=== PATIENT | female | born 1990 | race Caucasian/White ===

== ENCOUNTER 2017-03-25 13:02 | Emergency (ER) | payer OTHER ==
[~2017-03-25] VITALS: Ht 152.4 cm; Wt 89.4 kg
[2017-03-25] MEDS ORDERED: ANUS2.5C2 PR (14:37)
[2017-03-25] MEDS ORDERED: STOO100C PO (14:40)
[2017-03-25 14:59] VITALS: BP 136/78
== END 2017-03-25 15:03 | disposition home or self-care (01) ==
LOC: M ED 13:02
DX: K64.8 Other hemorrhoids (principal); K62.5 Hemorrhage of anus and rectum

== ENCOUNTER → 2019-04-30 | Outpatient (REF) | payer OTHER ==
[~2019-04-30] MED LIST: ANUS2.5C2 PR; MM S100C PO
[2019-04-30 13:52] LABS: HEMATOCRIT 37.8 % (36.0-47.0); HEMOGLOBIN 13.6 g/dl (12.0-15.5); MEAN CORPUSCULAR HEMOGLOBIN 35.6 pg (27.0-33.0); PLATELET COUNT, AUTOMATED 258 10^3/uL (150-450); RED BLOOD COUNT 3.82 10^6/uL (4.00-5.40); WHITE BLOOD COUNT 6.8 10^3/uL (4.0-10.0)
[2019-05-01 10:45] LABS: HEPATITIS B SURFACE ANTIGEN NEGATIVE (NEGATIVE); HEPATITIS C VIRUS ABY INDEX 0.1 INDEX (<0.8); HIV 1&2 SCREEN CENTAUR NEGATIVE (NEGATIVE); RUBELLA IgG QUALITATIVE IMMUNE (IMMUNE)
== END ==
LOC: M LAB REF 13:25
PROVIDERS: ATTEND Obstetrics & Gynecology
DX: Z34.81 Encounter for supervision of other normal pregnancy, first trimester (principal)

== ENCOUNTER 2020-02-17 13:38 | Inpatient (IN) | payer OTHER ==
[~2020-02-17] VITALS: Ht 154.9 cm; Wt 68.9 kg
[2020-02-17 14:43] LABS: HEMATOCRIT 38.5 % (36.0-47.0); HEMOGLOBIN 13.6 g/dl (12.0-15.5); MEAN CORPUSCULAR HEMOGLOBIN 34.3 pg (27.0-33.0); MEAN CORPUSCULAR HGB CONC 35.3 g/dl (32.0-36.5); MEAN CORPUSCULAR VOLUME 97.2 fl (80.0-96.0); PLATELET COUNT, AUTOMATED 225 10^3/uL (150-450); RED BLOOD COUNT 3.96 10^6/uL (4.00-5.40); WHITE BLOOD COUNT 8.2 10^3/uL (4.0-10.0)
[2020-02-17 14:48] LABS: HCG, SERUM QUALITATIVE NEGATIVE (NEGATIVE)
[2020-02-17 14:52] LABS: ACETAMINOPHEN LEVEL < 2.0 UG/ML (10.0-30.0); ALBUMIN 4.3 GM/DL (3.2-5.2); ALT/SGPT 35 U/L (12-78); BILIRUBIN,DIRECT 0.2 MG/DL (0.0-0.2); BILIRUBIN,TOTAL 0.7 MG/DL (0.2-1.0); BLOOD UREA NITROGEN 11 MG/DL (7-18); CALCIUM LEVEL 8.9 MG/DL (8.5-10.1); CARBON DIOXIDE LEVEL 23 MEQ/L (21-32); CHLORIDE LEVEL 109 MEQ/L (98-107); CREATININE FOR GFR 0.82 MG/DL (0.55-1.30); ETHYL ALCOHOL (ETHANOL) 0.044 % (0.000-0.010); GLOMERULAR FILTRATION RATE > 60.0 (>60); GLUCOSE, FASTING 74 MG/DL (70-100); POTASSIUM SERUM 3.9 MEQ/L (3.5-5.1); SALICYLATE LEVEL < 1.7 MG/DL (5.0-30.0); SODIUM LEVEL 141 MEQ/L (136-145); THYROID STIMULATING HORMONE 0.681 uIU/ML (0.358-3.740); TOTAL PROTEIN 7.7 GM/DL (6.4-8.2)
[2020-02-17 15:33] LABS: AMPHETAMINES LEVEL URINE NEGATIVE (NEGATIVE); BARBITURATES URINE NEGATIVE (NEGATIVE); BENZODIAZEPINES URINE NEGATIVE (NEGATIVE); CANNABINOIDS URINE NEGATIVE (NEGATIVE); COCAINE METABOLITE URINE POSITIVE (NEGATIVE); METHADONE URINE NEGATIVE (NEGATIVE); OPIATES URINE NEGATIVE (NEGATIVE); PHENCYCLIDINE URINE NEGATIVE (NEGATIVE)
[2020-02-17 16:06] LABS: CPK CREATINE PHOSPHOKINASE 63 U/L (26-192)
[2020-02-17] MEDS ORDERED: TRI-TAB16 PO (16:08)
[2020-02-17] MEDS ORDERED: traZODone 50 MG TAB PO PRN (18:45)
[2020-02-17] MEDS ORDERED: MAALOX 30 ML SUSP *UDC PO PRN (18:45)
[2020-02-17] MEDS ORDERED: MOM 30ML SUSPENSION UDC PO PRN (18:45)
[2020-02-17] MEDS ORDERED: ACETAMINOPHEN TAB 650MG DOSE (2X325MG) PO PRN (18:45)
[2020-02-17 23:34] VITALS: BP 138/98
[2020-02-18 06:39] VITALS: BP 168/92
--- NOTE | 2020-02-18 09:12 | MHHPEPDOC ---
General Date Of Admission: Feb 17, 2020 Legal Status: 9.39 Chief Complaint "I was stressed" History of Present Illness HISTORY OF THE PRESENT ILLNESS: Patient is a 29 -year-old , female, who Presented to [facility] after reportedly becoming increasingly depressed and despondent. The patient reported that she had been using cocaine and drinking alcohol and had expressed some suicidal thoughts for which she was brought in an admitted [facility] caution. The patient was met with she reports she had no suicidal thoughts and was feeling much improved, she reported that her cocaine use and her stress of having to stay at home and deal with many psychosocial stressors was making her feel worse. She reported that she was mental trying medications and was interested in going home tomorrow. She reported that she had no other treatment prior Psychiatric Review of Systems Depression (2 or more weeks): depressed mood, insomnia/hypersomnia Eleni (4 or more days of): denies Psychosis: denies Anxiety: stressor related anxiety Past Psychiatric History Previous Psychiatric Diagnosis: none. Previous Psychiatric Admissions: denies. Suicide Attempts: denies. Psychiatric Follow-up: none. Psychiatric medications: none. Past Medical History Medical Problems n/a Family Medical/Psychiatric HX Addiction: Yes Addiction History alcohol, cocaine Social History Childhood: "fine". Abuse/Trauma:denies. Current Living Situation: lives alone. Education: HS. Employment: currently working. Social Support: few. Legal: none noted. Mental Status Examination General Appearance: well groomed Build: average Demeanor: average Eye Contact: average Activity: average Behavior: cooperative Speech: clear Mood: euthymic Affect: full Thought Process: logical/linear Thought Content (Delusions): none reported, denies SI, HI, AVH Thought Content (Aggressive): none reported Perception (Hallucinations): none reported Perception (Other): none reported Cognition (Impairment of): none reported Cognition(Intelligence Est.): average Oriented: Awake, Alert Insight: fair Judgment: Fair Psychosis: Denies A-FIB/CHADSVASC A-FIB History Current/History of A-Fib/PAF?: No Assessment 29-year-old woman with likely adjustment disorder presents after multiple stressors, as well as alcohol and cocaine use Problem List Problems: (1) Adjustment disorder Status: Acute Response to Treatment: Improving Problem Specific Plan: Monitor Clinically Problem Text: sertraline 25mg daily, discussed risks,benifits and side effects with patient as well as alternatives (2) Cocaine abuse Status: Chronic Response to Treatment: Stable Problem Specific Plan: Monitor Clinically (3) Alcohol abuse Status: Chronic Response to Treatment: Stable Problem Specific Plan: Monitor Clinically Initial Treatment Plan 1. Patient was admitted on a [9.39] status. 2. Complete history was obtained. 3. With patients permission, family will be contacted and database will be expanded. 4. Patients medication regimen will be reviewed and changed accordingly. 5. Patient will be provided with protected environment. 6. Patient will be treated with individual, group, and milieu therapies. 7. Patient will receive supportive psych-education. 8. Discharge planning will commence immediately. 9. Outpatient follow-up treatment will be strongly recommended. 10. The initial treatment plan will focus initially on: * Depression. * Risk for suicide. ESTIMATED LENGTH OF STAY: 2 DAYS. TIME SPENT COUNSELING AND COORDINATING INITIAL CARE: 30 minutes. Vital Signs Vital Signs Date Time Temp Pulse Resp B/P (MAP) Pulse Ox O2 Delivery O2 Flow Rate FiO2 02/18/20 06:39 98.0 67 16 168/92 (117) 97 Room Air Laboratory Data 24H Labs Laboratory Tests 2 02/17/20 14:08: Nucleated Red Blood Cells % (auto) 0.0, Anion Gap 9, Glomerular Filtration Rate > 60.0, Calcium Level 8.9, Total Bilirubin 0.7, Direct Bilirubin 0.2, Aspartate Amino Transf (AST/SGOT) 42H, Alanine Aminotransferase (ALT/SGPT) 35, Alkaline Phosphatase 63, Total Creatine Kinase 63, Total Protein 7.7, Albumin 4.3, Albumin/Globulin Ratio 1.3, Thyroid Stimulating Hormone (TSH) 0.681, Human Chorionic Gonadotropin, Qual NEGATIVE, Salicylates Level < 1.7L, Acetaminophen Level < 2.0L, Ethyl Alcohol Level 0.044H 02/17/20 14:58: Urine Opiates Screen NEGATIVE, Urine Methadone Screen NEGATIVE, Urine Barbiturates Screen NEGATIVE, Urine Phencyclidine Screen NEGATIVE, Urine Amphetamines Screen NEGATIVE, Urine Benzodiazepines Screen NEGATIVE, Urine Cocaine Metabolite Screen POSITIVEH, Urine Cannabinoids Screen NEGATIVE CBC/BMP Laboratory Tests 02/17/20 14:08 Medications Scheduled Norgestimate-Ethinyl Estradiol (Tri-Linyah Tablet) 1 Each Tablet, 1 TAB PO DAILY, (Reported) Allergies Coded Allergies: No Known Allergies (Unverified , 02/17/20) RICH BLACKWOOD DO Feb 18, 2020 09:12
[2020-02-18] MEDS ORDERED: LORazepam 2 MG TAB PO PRN (09:30)
[2020-02-18] MEDS: MULTIVITAMINS/MINERALS THERAP 1 TAB PO SCH (09:38)
[2020-02-18] MEDS: THIAMINE 100 MG TAB PO SCH ×2 (09:38→20:23)
[2020-02-18] MEDS: FOLIC ACID 1 MG TAB PO SCH (09:39)
[2020-02-18] MEDS ORDERED: SERTRALINE HCL 25 MG TABLET PO ONE (11:30)
[2020-02-18 12:55] LABS: FOLATE > 24.0 NG/ML (>5.4); VITAMIN B12 LEVEL 314 PG/ML (247-911)
--- NOTE | 2020-02-18 14:42 | HPEPDOC ---
[facility] Medical History & Physical Date of Admission Feb 18, 2020 Date of Service: Feb 18, 2020 History and Physical CHIEF COMPLAINT: Medical H&P for [facility] HISTORY OF PRESENT ILLNESS: 29 yo female admitted to [facility], seen at bedside, voices no medical complaints. Denies chest pain, shortness of breath, headaches, abdominal pain, N/V/D. PAST MEDICAL HISTORY: Denies ALLERGIES: Please see below. REVIEW OF SYSTEMS: Negative except as per HPI. HOME MEDICATIONS: Please see below. PHYSICAL EXAMINATION: VITAL SIGNS: See below General: NAD, lying comfortably in bed HEENT: NC/AT, EOMI Lungs: CTA B/L Heart: +S1S2, RRR Abd: soft, NT, +BS Ext: no edema LABORATORY DATA: See below. MICROBIOLOGY: Please see below. ASSESSMENT: 29 yo female seen in [facility] for medical consultation. #Psych - as per primary team - psychiatry Vital Signs Vital Signs Date Time Temp Pulse Resp B/P (MAP) Pulse Ox O2 Delivery O2 Flow Rate FiO2 02/18/20 06:39 98.0 67 16 168/92 (117) 97 Room Air Laboratory Data Labs 24H Laboratory Tests 2 02/17/20 14:58: Urine Opiates Screen NEGATIVE, Urine Methadone Screen NEGATIVE, Urine Barbiturates Screen NEGATIVE, Urine Phencyclidine Screen NEGATIVE, Urine Amphetamines Screen NEGATIVE, Urine Benzodiazepines Screen NEGATIVE, Urine Cocaine Metabolite Screen POSITIVEH, Urine Cannabinoids Screen NEGATIVE 02/18/20 11:51: Vitamin B12 Level 314, Folate > 24.0 Home Medications Scheduled Norgestimate-Ethinyl Estradiol (Tri-Linyah Tablet) 1 Each Tablet, 1 TAB PO DAILY Allergies Coded Allergies: No Known Allergies (Unverified , 02/17/20) A-FIB/CHADSVASC A-FIB History Current/History of A-Fib/PAF?: No MIGUEL NICOLE MD Feb 18, 2020 14:42
[2020-02-18 17:08] VITALS: BP 125/79
[2020-02-18 22:07] VITALS: BP 125/79
[2020-02-19 06:00] VITALS: BP 118/82
[2020-02-19 06:34] VITALS: BP 118/82
[2020-02-19] MEDS: FOLIC ACID 1 MG TAB PO SCH (08:25)
[2020-02-19] MEDS: THIAMINE 100 MG TAB PO SCH (08:26)
[2020-02-19] MEDS: MULTIVITAMINS/MINERALS THERAP 1 TAB PO SCH (08:26)
[2020-02-19] MEDS ORDERED: SERTRALINE HCL 25 MG TABLET PO SCH (09:00)
--- NOTE | 2020-02-19 09:15 | MHDSPDOC ---
[facility] Discharge Summary Discharge Summary DATE OF ADMISSION: Feb 17, 2020 at 18:33 DATE OF DISCHARGE: Feb 19, 2020 at 13:15 DISCHARGE DIAGNOSES: 1. Unspecified depressive disorder. 2. poly substance use. REASON FOR ADMISSION: 29-year-old woman is admitted for depressive symptoms after using cocaine and alcohol CONSULTANTS INVOLVED: none TREATMENT AND PROGRESS ON THE UNIT : the patient was admitted to inpatient unit and started on sertraline 25 mg. She resolved quite quickly without any intervention suggesting substance use being primary to her presentation. She resulted well in at 48 hours requested discharge and she had been denying any suicidal or homicidal ideation with a normal mental status exam and was sent behavioral control the entire time during her mission.. DISCHARGE ASSESSMENT: 29-year-old woman with a history of substance use and depression presents and is treated supportively. The patient at the time of discharge did not meet criteria for involuntary admission/extension due to having a normal mental status exam, fair insight into the situation, They are engaged in the discharge process, as well as being friendly and amenable in behavioral control and havent been engaging in any observed concerning behavior or ideation recently. They decline voluntary extension/admission at this time and must be discharged in good aamir, as Im unable to make a case for holding the patient against their will. They may have historical risk factors of admissions and other interactions with psychiatry however, those are not modifiable from a clinical perspective. The patient will need to be discharged in good aamir. MENTAL STATUS EXAMINATION ON DISCHARGE: General: Well dressed with good hygiene Speech: Spontaneous and fluid Thought processes: Linear and logical Thought content: Future orientated Abstract reasoning, and computation: Intact Description of associations: Intact Description of abnormal or psychotic thoughts:Denies any suicidal or homicidal ideation. Denies any auditory or visual hallucinations. Does not appear to be responding to internal stimuli. Does not appear to be endorsing any bizarre or paranoid ideation. Judgment: fair Insight: fair Orientation: Alert and orientated 3 Recent and remote memory: Intact Attention span and concentration: Intact Fund of knowledge: Adequate Mood: "okay" Affect: Euthymic with a full range PLAN/FOLLOWUP ARRANGEMENTS: follow-up arrangements made and safety planning completed. The amount of time spent in the coordination of care for this patient was approximately 45 minutes. Vital Signs/I&Os Vital Signs Date Time Temp Pulse Resp B/P (MAP) Pulse Ox O2 Delivery O2 Flow Rate FiO2 02/19/20 06:34 97.8 63 16 118/82 (94) 99 Room Air Laboratory Data Labs 24H Laboratory Tests 2 02/18/20 11:51: Vitamin B12 Level 314, Folate > 24.0 Medications Scheduled Norgestimate-Ethinyl Estradiol (Tri-Linyah Tablet) 1 Each Tablet, 1 TAB PO DAILY, (Reported) Sertraline HCl (Sertraline HCl) 25 Mg Tablet, 25 MG PO DAILY for mood for 7 Days, #7 Allergies Coded Allergies: No Known Allergies (Unverified , 02/17/20) RICH BLACKWOOD DO Feb 19, 2020 09:15
[2020-02-19] MEDS ORDERED: SERT25TA21 PO (10:43)
== END 2020-02-19 13:15 | disposition home or self-care (01) | DRG 881 ==
LOC: M ED 13:38 → M ED INP 18:33 → M PSY 23:08
PROVIDERS: ADMIT Psychiatry & Neurology Addiction Medicine; ATTEND Psychiatry & Neurology Addiction Medicine
DX: F32.9 Major depressive disorder, single episode, unspecified (principal); F14.10 Cocaine abuse, uncomplicated; F10.10 Alcohol abuse, uncomplicated; Z79.899 Other long term (current) drug therapy

== ENCOUNTER → 2020-06-25 | Outpatient (CLI) | payer OTHER ==
[~2020-06-25] MED LIST changes: +SERT25TA21 PO; +TRI-TAB16 PO
--- NOTE | 2020-06-30 07:52 | REP ---
OBSTETRIC SONOGRAPHY: FIRST TRIMESTER STUDY HISTORY: Supervision of . FINDINGS: Transabdominal and transvaginal scanning are performed. A single living intrauterine gestation is seen. A yolk sac is visualized. The embryonic pole measures 0.3 cm. This corresponds with a gestational age estimate of five weeks six days. heart rate is recorded at 94 beats per minute. No extrauterine abnormality. IMPRESSION: Single living intrauterine gestation at 5 weeks 6 days by crown-rump length. Estimated date of delivery (SANTOS) by [facility] sonography 02/19/2021. No complications seen. MTDD
== END ==
LOC: M WHC 07:59
PROVIDERS: ATTEND Obstetrics & Gynecology
DX: O36.80X0 Pregnancy with inconclusive fetal viability, not applicable or unspecified (principal); Z3A.01 Less than 8 weeks gestation of pregnancy

== ENCOUNTER → 2021-02-04 | Outpatient (REF) | payer OTHER ==
[2021-02-04 13:12] LABS: HEMATOCRIT 35.2 % (36.0-47.0); HEMOGLOBIN 12.2 g/dl (12.0-15.5); MEAN CORPUSCULAR HEMOGLOBIN 33.7 pg (27.0-33.0); MEAN CORPUSCULAR HGB CONC 34.7 g/dl (32.0-36.5); MEAN CORPUSCULAR VOLUME 97.2 fl (80.0-96.0); PLATELET COUNT, AUTOMATED 218 10^3/uL (150-450); RED BLOOD COUNT 3.62 10^6/uL (4.00-5.40); WHITE BLOOD COUNT 5.5 10^3/uL (4.0-10.0)
[2021-02-04 14:30] LABS: HCG, SERUM QUANTITATIVE 1077 MIU/ML; HEPATITIS B SURFACE ANTIGEN NEGATIVE (NEGATIVE); HIV 1&2 SCREEN CENTAUR NEGATIVE (NEGATIVE)
== END ==
LOC: M LAB REF 12:19
PROVIDERS: ATTEND Obstetrics & Gynecology
DX: O36.80X0 Pregnancy with inconclusive fetal viability, not applicable or unspecified (principal)

== ENCOUNTER → 2021-02-10 | Outpatient (REF) | payer OTHER | LOC: M LAB REF 16:49 | PROVIDERS: ATTEND Obstetrics & Gynecology | DX: O36.80X0 Pregnancy with inconclusive fetal viability, not applicable or unspecified (principal) ==

== ENCOUNTER 2021-02-12 09:24 | Emergency (ER) | payer OTHER ==
[~2021-02-12] VITALS: Ht 152.4 cm; Wt 69.0 kg
[2021-02-12] MEDS ORDERED: LAMO100T3 PO (09:29)
[2021-02-12 09:52] LABS: BASO % 0.7 % (0.0-1.0); EOS # 0.1 10^3/uL (0.0-0.5); HEMATOCRIT 38.3 % (36.0-47.0); HEMOGLOBIN 13.4 g/dl (12.0-15.5); LYMPH # 1.7 10^3/uL (1.5-5.0); LYMPH % 28.3 % (24.0-44.0); MEAN CORPUSCULAR VOLUME 97.2 fl (80.0-96.0); MONO # 0.4 10^3/uL (0.0-0.8); MONO % 5.9 % (2.0-8.0); NEUTROPHILS # 3.8 10^3/uL (1.5-8.5); NEUTROPHILS % 63.8 % (36.0-66.0); PLATELET COUNT, AUTOMATED 240 10^3/uL (150-450); RED BLOOD COUNT 3.94 10^6/uL (4.00-5.40); WHITE BLOOD COUNT 5.9 10^3/uL (4.0-10.0)
[2021-02-12] MEDS ORDERED: RHOGAM 300 MCG (1500 IU) INJ (J2790) IM ONE (10:30)
[2021-02-12 11:00] VITALS: BP 118/67
== END 2021-02-12 11:18 | disposition home or self-care (01) ==
LOC: M ED 09:24
DX: O03.4 Incomplete spontaneous abortion without complication (principal); O99.340 Other mental disorders complicating pregnancy, unspecified trimester; F33.9 Major depressive disorder, recurrent, unspecified; F41.9 Anxiety disorder, unspecified; Z3A.00 Weeks of gestation of pregnancy not specified; Z79.899 Other long term (current) drug therapy
CPT/HCPCS: 36415; 84702; 85025; 86850; 86900; 86901; 96372; 99284; J2790

== ENCOUNTER → 2021-02-22 | Outpatient (REF) | payer OTHER ==
[~2021-02-22] MED LIST changes: +LAMO100T3 PO
== END ==
LOC: M LAB REF 16:53
PROVIDERS: ATTEND Advanced Practice Midwife
DX: O02.1 Missed abortion (principal)

== ENCOUNTER 2021-06-01 05:44 | Inpatient (IN) | payer OTHER, SELFPAY ==
[~2021-06-01] VITALS: Ht 160 cm; Wt 76.0 kg
[2021-06-01] MEDS ORDERED: NS 1,000 ML IV ONE (05:55)
[2021-06-01 06:17] LABS: BASO # 0.1 10^3/uL (0.0-0.2); BASO % 0.4 % (0.0-1.0); EOS % 0.2 % (0.0-3.0); HEMATOCRIT 40.6 % (36.0-47.0); HEMOGLOBIN 13.8 g/dl (12.0-15.5); LYMPH # 1.3 10^3/uL (1.5-5.0); LYMPH % 7.3 % (24.0-44.0); MEAN CORPUSCULAR HEMOGLOBIN 33.7 pg (27.0-33.0); MEAN CORPUSCULAR VOLUME 99.3 fl (80.0-96.0); MONO # 0.6 10^3/uL (0.0-0.8); MONO % 3.2 % (2.0-8.0); PLATELET COUNT, AUTOMATED 338 10^3/uL (150-450); RED BLOOD COUNT 4.09 10^6/uL (4.00-5.40); WHITE BLOOD COUNT 18.1 10^3/uL (4.0-10.0)
[2021-06-01] MEDS ORDERED: NS 2,280 ML in IV 1 EA IV ONE (07:00)
[2021-06-01 07:04] LABS: ALBUMIN 4.2 GM/DL (3.2-5.2); ALT/SGPT 28 U/L (12-78); BILIRUBIN,DIRECT 0.1 MG/DL (0.0-0.2); BILIRUBIN,TOTAL 0.3 MG/DL (0.2-1.0); BLOOD UREA NITROGEN 8 MG/DL (7-18); CALCIUM LEVEL 7.8 MG/DL (8.5-10.1); CARBON DIOXIDE LEVEL 12 MEQ/L (21-32); CHLORIDE LEVEL 108 MEQ/L (98-107); CK-MB VALUE MASS 1.7 NG/ML (<3.6); CPK CREATINE PHOSPHOKINASE 134 U/L (26-192); ETHYL ALCOHOL (ETHANOL) 0.083 % (0.000-0.010); GLOMERULAR FILTRATION RATE > 60.0 (>60); GLUCOSE, FASTING 232 MG/DL (70-100); MB/CK RELATIVE INDEX 1.27 (< OR =4); POTASSIUM SERUM 3.4 MEQ/L (3.5-5.1); SALICYLATE LEVEL < 1.7 MG/DL (5.0-30.0); SODIUM LEVEL 143 MEQ/L (136-145); TOTAL PROTEIN 8.2 GM/DL (6.4-8.2); TROPONIN I < 0.02 NG/ML (< 0.10)
[2021-06-01 07:05] LABS: ACETAMINOPHEN LEVEL < 2.0 UG/ML (10.0-30.0); THYROID STIMULATING HORMONE 0.968 uIU/ML (0.358-3.740)
[2021-06-01] MEDS: MAG SULF 1GM/100ML (MAG RUN) 1 GM in IV 1 EA IV SCH ×2 (07:14→08:00)
[2021-06-01 07:26] LABS: OSMOLALITY SERUM 327 MOSM/KG (275-295)
[2021-06-01 08:03] LABS: MAGNESIUM LEVEL 2.1 MG/DL (1.8-2.4)
[2021-06-01 08:06] LABS: AMPHETAMINES LEVEL URINE NEGATIVE (NEGATIVE); BARBITURATES URINE NEGATIVE (NEGATIVE); BENZODIAZEPINES URINE NEGATIVE (NEGATIVE); CANNABINOIDS URINE NEGATIVE (NEGATIVE); COCAINE METABOLITE URINE NEGATIVE (NEGATIVE); METHADONE URINE NEGATIVE (NEGATIVE); OPIATES URINE NEGATIVE (NEGATIVE); PHENCYCLIDINE URINE NEGATIVE (NEGATIVE)
[2021-06-01 08:22] LABS: RSV AMPLIFICATION NEGATIVE (NEGATIVE)
[2021-06-01] MEDS ORDERED: SODIUM BICARBONATE 8.4% INJ 50 ML SYRINGE IV ONE (08:50)
[2021-06-01] MEDS ORDERED: PROMETHAZINE INJ 25 MG/ML VIAL (J2550) IM ONE (09:45)
[2021-06-01 11:21] LABS: BLOOD UREA NITROGEN 6 MG/DL (7-18); CALCIUM LEVEL 6.5 MG/DL (8.5-10.1); CARBON DIOXIDE LEVEL 24 MEQ/L (21-32); CHLORIDE LEVEL 112 MEQ/L (98-107); CREATININE FOR GFR 0.75 MG/DL (0.55-1.30); GLOMERULAR FILTRATION RATE > 60.0 (>60); GLUCOSE, FASTING 143 MG/DL (70-100); POTASSIUM SERUM 3.7 MEQ/L (3.5-5.1); SODIUM LEVEL 145 MEQ/L (136-145)
[2021-06-01] MEDS ORDERED: VIEN1TAB PO (12:03)
[2021-06-01] MEDS ORDERED: HOME MED LIST COMPLETE! XX SCH (12:05)
[2021-06-01] MEDS ORDERED: LORazepam 2 MG/ML VIAL IV PRN (13:00)
[2021-06-01] MEDS ORDERED: PROMETHAZINE 25 MG TAB PO ONE (13:15)
[2021-06-01] MEDS ORDERED: POTASSIUM CHLORIDE 10MEQ SR TABLET PO ONE (13:15)
[2021-06-01] MEDS: NS 1,000 ML IV SCH (14:54)
[2021-06-01] MEDS: NICOTINE 14 MG/24 HR TRANSDERMAL TD SCH (14:54)
[2021-06-01] MEDS: HEPARIN SOD (PORCINE) 5000UNITS/ML 1ML VIAL/SYRINGE SQ SCH (14:56)
[2021-06-01 17:41] LABS: BASO % 0.1 % (0.0-1.0); HEMATOCRIT 32.7 % (36.0-47.0); LYMPH # 0.4 10^3/uL (1.5-5.0); LYMPH % 4.3 % (24.0-44.0); MEAN CORPUSCULAR HEMOGLOBIN 34.1 pg (27.0-33.0); MEAN CORPUSCULAR HGB CONC 34.9 g/dl (32.0-36.5); MEAN CORPUSCULAR VOLUME 97.9 fl (80.0-96.0); MONO # 0.5 10^3/uL (0.0-0.8); MONO % 5.6 % (2.0-8.0); NEUTROPHILS # 8.7 10^3/uL (1.5-8.5); NEUTROPHILS % 89.6 % (36.0-66.0); RED BLOOD COUNT 3.34 10^6/uL (4.00-5.40); WHITE BLOOD COUNT 9.7 10^3/uL (4.0-10.0)
[2021-06-01 17:48] LABS: HEMOGLOBIN 11.4 g/dl (12.0-15.5); PLATELET COUNT, AUTOMATED 196 10^3/uL (150-450)
[2021-06-01 18:24] LABS: ALBUMIN 3.5 GM/DL (3.2-5.2); ALT/SGPT 30 U/L (12-78); BILIRUBIN,TOTAL 0.5 MG/DL (0.2-1.0); BLOOD UREA NITROGEN 6 MG/DL (7-18); CARBON DIOXIDE LEVEL 24 MEQ/L (21-32); CHLORIDE LEVEL 111 MEQ/L (98-107); CREATININE FOR GFR 0.62 MG/DL (0.55-1.30); GLOMERULAR FILTRATION RATE > 60.0 (>60); GLUCOSE, FASTING 123 MG/DL (70-100); MAGNESIUM LEVEL 2.3 MG/DL (1.8-2.4); PHOSPHORUS LEVEL 2.3 MG/DL (2.5-4.9); POTASSIUM SERUM 4.1 MEQ/L (3.5-5.1); SODIUM LEVEL 143 MEQ/L (136-145); TOTAL PROTEIN 6.7 GM/DL (6.4-8.2)
[2021-06-01] MEDS ORDERED: SODIUM PHOSPHATE INJ 20 MMOL in D5W 250 ML IV ONE (20:00)
[2021-06-01 23:13] VITALS: BP 139/85
[2021-06-02] MEDS: NS 1,000 ML IV SCH ×2 (00:02→05:00)
[2021-06-02] MEDS: HEPARIN SOD (PORCINE) 5000UNITS/ML 1ML VIAL/SYRINGE SQ SCH ×5 (00:02→21:19)
[2021-06-02] MEDS ORDERED: FIORICET TAB PO PRN (00:30)
[2021-06-02] MEDS ORDERED: ONDANSETRON 4 MG ORAL DISINTEGRATING TAB PO PRN (00:30)
[2021-06-02] MEDS: PROMETHAZINE 25 MG TAB PO PRN (01:00)
[2021-06-02 02:00] VITALS: BP 120/71
[2021-06-02] MEDS ORDERED: THIAMINE INJection 500 MG in NS 100 ML IV SCH ×3 (04:00)
[2021-06-02 05:48] LABS: HEMATOCRIT 30.2 % (36.0-47.0); HEMOGLOBIN 10.5 g/dl (12.0-15.5); MEAN CORPUSCULAR HEMOGLOBIN 33.9 pg (27.0-33.0); MEAN CORPUSCULAR HGB CONC 34.8 g/dl (32.0-36.5); MEAN CORPUSCULAR VOLUME 97.4 fl (80.0-96.0); PLATELET COUNT, AUTOMATED 192 10^3/uL (150-450); WHITE BLOOD COUNT 10.2 10^3/uL (4.0-10.0)
[2021-06-02 06:00] VITALS: BP 123/83
[2021-06-02 06:29] LABS: BLOOD UREA NITROGEN 6 MG/DL (7-18); CALCIUM LEVEL 6.8 MG/DL (8.5-10.1); CARBON DIOXIDE LEVEL 26 MEQ/L (21-32); CHLORIDE LEVEL 111 MEQ/L (98-107); CREATININE FOR GFR 0.63 MG/DL (0.55-1.30); FERRITIN 82 NG/ML (8-252); GLOMERULAR FILTRATION RATE > 60.0 (>60); GLUCOSE, FASTING 91 MG/DL (70-100); IRON (FE) 123 UG/DL (50-170); MAGNESIUM LEVEL 2.5 MG/DL (1.8-2.4); PERCENT SATURATION 41.8 % (13.2-45.0); PHOSPHORUS LEVEL 2.3 MG/DL (2.5-4.9); POTASSIUM SERUM 3.3 MEQ/L (3.5-5.1); SODIUM LEVEL 143 MEQ/L (136-145); TOTAL IRON BINDING CAPACITY 294 UG/DL (250-450)
[2021-06-02] MEDS ORDERED: POTASSIUM CHLORIDE 10MEQ SR TABLET PO ONE ×4 (06:50→16:30)
[2021-06-02] MEDS ORDERED: CYANOCOBALAMIN 1,000MCG/ML VIAL (J3420) SC SCH (09:00)
[2021-06-02 09:17] LABS: FOLATE 7.8 NG/ML; VITAMIN B12 LEVEL 272 PG/ML
[2021-06-02 09:55] VITALS: BP 121/74
[2021-06-02] MEDS ORDERED: SODIUM PHOSPHATE INJ 30 MMOL in D5W 500 ML IV ONE (10:00)
[2021-06-02] MEDS ORDERED: THIAMINE 100 MG TAB PO ONE (10:15)
[2021-06-02] MEDS ORDERED: FOLIC ACID 1 MG TAB PO ONE (10:15)
[2021-06-02] MEDS: NICOTINE 14 MG/24 HR TRANSDERMAL TD SCH (10:28)
[2021-06-02] MEDS ORDERED: CALCIUM GLUCONATE 1,000 MG in D5W MINI-BAG PLUS 100 ML IV ONE (11:00)
[2021-06-02 11:12] LABS: PTH INTACT 150.5 PG/ML (18.5-88.0); TOTAL 25(OH) VITAMIN D 34.6 NG/ML (30.0-100.0)
[2021-06-02 14:00] VITALS: BP 110/62
[2021-06-02 14:13] LABS: VENOUS BASE EXCESS -4.2 (-2.0-2.0); VENOUS HCO3 19.9 MEQ/L (23.0-27.0); VENOUS O2 SATURATION 98.5 % (60.0-80.0); VENOUS PARTIAL PRESSURE CO2 33.2 mmHg (38.0-50.0); VENOUS PARTIAL PRESSURE O2 156.1 mmHg (30.0-50.0); VENOUS PH 7.396 UNITS (7.330-7.430); VENOUS SITE NOT GIVEN; VENOUS TOTAL CO2 20.9 MEQ/L (24.0-28.0)
[2021-06-02 14:52] LABS: BLOOD UREA NITROGEN 6 MG/DL (7-18); CALCIUM LEVEL 8.1 MG/DL (8.5-10.1); CARBON DIOXIDE LEVEL 21 MEQ/L (21-32); CHLORIDE LEVEL 114 MEQ/L (98-107); CREATININE FOR GFR 0.86 MG/DL (0.55-1.30); GLOMERULAR FILTRATION RATE > 60.0 (>60); GLUCOSE, FASTING 94 MG/DL (70-100); MAGNESIUM LEVEL 2.3 MG/DL (1.8-2.4); PHOSPHORUS LEVEL 1.4 MG/DL (2.5-4.9); POTASSIUM SERUM 3.2 MEQ/L (3.5-5.1); SODIUM LEVEL 145 MEQ/L (136-145)
[2021-06-02 18:00] VITALS: BP 131/86
[2021-06-02] MEDS ORDERED: POTASSIUM PHOSPHATE INJ 30 MMOL in D5W 500 ML IV ONE (18:00)
[2021-06-02] MEDS: K-PHOS ORIGINAL (POT.ACID PHOSPHATE) 500MG TAB PO SCH (21:19)
[2021-06-02] MEDS: ACETAMINOPHEN TAB 650MG DOSE (2X325MG) PO PRN (21:23)
[2021-06-02 22:00] VITALS: BP 142/86
[2021-06-03 02:00] VITALS: BP 137/89
[2021-06-03] MEDS: HEPARIN SOD (PORCINE) 5000UNITS/ML 1ML VIAL/SYRINGE SQ SCH ×3 (05:45→21:19)
[2021-06-03 05:56] LABS: BASO # 0.1 10^3/uL (0.0-0.2); BASO % 0.9 % (0.0-1.0); EOS # 0.1 10^3/uL (0.0-0.5); EOS % 1.2 % (0.0-3.0); HEMATOCRIT 30.2 % (36.0-47.0); HEMOGLOBIN 10.4 g/dl (12.0-15.5); LYMPH # 2.7 10^3/uL (1.5-5.0); LYMPH % 36.3 % (24.0-44.0); MEAN CORPUSCULAR HEMOGLOBIN 33.8 pg (27.0-33.0); MEAN CORPUSCULAR HGB CONC 34.4 g/dl (32.0-36.5); MEAN CORPUSCULAR VOLUME 98.1 fl (80.0-96.0); MONO # 0.5 10^3/uL (0.0-0.8); MONO % 6.5 % (2.0-8.0); NEUTROPHILS # 4.1 10^3/uL (1.5-8.5); NEUTROPHILS % 54.7 % (36.0-66.0); PLATELET COUNT, AUTOMATED 184 10^3/uL (150-450); RED BLOOD COUNT 3.08 10^6/uL (4.00-5.40); WHITE BLOOD COUNT 7.4 10^3/uL (4.0-10.0)
[2021-06-03 06:00] VITALS: BP 139/86
[2021-06-03 06:29] LABS: BLOOD UREA NITROGEN 6 MG/DL (7-18); CARBON DIOXIDE LEVEL 25 MEQ/L (21-32); CHLORIDE LEVEL 108 MEQ/L (98-107); CREATININE FOR GFR 0.58 MG/DL (0.55-1.30); GLOMERULAR FILTRATION RATE > 60.0 (>60); GLUCOSE, FASTING 82 MG/DL (70-100); MAGNESIUM LEVEL 2.3 MG/DL (1.8-2.4); PHOSPHORUS LEVEL 2.7 MG/DL (2.5-4.9); POTASSIUM SERUM 3.9 MEQ/L (3.5-5.1); SODIUM LEVEL 143 MEQ/L (136-145)
[2021-06-03] MEDS: THIAMINE 100 MG TAB PO SCH (08:18)
[2021-06-03] MEDS: FOLIC ACID 1 MG TAB PO SCH (08:19)
[2021-06-03] MEDS: ACETAMINOPHEN TAB 650MG DOSE (2X325MG) PO PRN ×2 (08:19→15:56)
[2021-06-03] MEDS: K-PHOS ORIGINAL (POT.ACID PHOSPHATE) 500MG TAB PO SCH ×2 (08:19→21:19)
[2021-06-03] MEDS: CYANOCOBALAMIN 1,000MCG/ML VIAL (J3420) IM SCH (08:20)
[2021-06-03] MEDS: NICOTINE 14 MG/24 HR TRANSDERMAL TD SCH (08:20)
[2021-06-03] MEDS ORDERED: ASCORBIC ACID 500 MG TAB PO SCH (09:00)
[2021-06-03 10:00] VITALS: BP 110/60
[2021-06-03] MEDS: OYSTER SHELL CALCIUM 500 MG TAB PO SCH (13:36)
[2021-06-03 14:00] VITALS: BP 116/80
[2021-06-03 18:00] VITALS: BP 139/75
[2021-06-03 20:55] VITALS: BP 118/90
[2021-06-04] VITALS: BP 120/72
[2021-06-04 04:51] VITALS: BP 118/70
[2021-06-04 05:51] LABS: HEMATOCRIT 34.7 % (36.0-47.0); HEMOGLOBIN 12.3 g/dl (12.0-15.5); MEAN CORPUSCULAR HEMOGLOBIN 33.5 pg (27.0-33.0); MEAN CORPUSCULAR HGB CONC 35.4 g/dl (32.0-36.5); MEAN CORPUSCULAR VOLUME 94.6 fl (80.0-96.0); PLATELET COUNT, AUTOMATED 202 10^3/uL (150-450); RED BLOOD COUNT 3.67 10^6/uL (4.00-5.40)
[2021-06-04] MEDS: HEPARIN SOD (PORCINE) 5000UNITS/ML 1ML VIAL/SYRINGE SQ SCH ×3 (05:56→21:22)
[2021-06-04] MEDS: OYSTER SHELL CALCIUM 500 MG TAB PO SCH (08:11)
[2021-06-04] MEDS: FOLIC ACID 1 MG TAB PO SCH (08:11)
[2021-06-04] MEDS: K-PHOS ORIGINAL (POT.ACID PHOSPHATE) 500MG TAB PO SCH (08:11)
[2021-06-04] MEDS: THIAMINE 100 MG TAB PO SCH (08:11)
[2021-06-04] MEDS: ACETAMINOPHEN TAB 650MG DOSE (2X325MG) PO PRN (08:12)
[2021-06-04] MEDS: CYANOCOBALAMIN 1,000MCG/ML VIAL (J3420) IM SCH (08:12)
[2021-06-04] MEDS: NICOTINE 14 MG/24 HR TRANSDERMAL TD SCH (08:12)
[2021-06-04 09:07] LABS: ALBUMIN 3.5 GM/DL (3.2-5.2); ALT/SGPT 33 U/L (12-78); BILIRUBIN,TOTAL 0.6 MG/DL (0.2-1.0); BLOOD UREA NITROGEN 7 MG/DL (7-18); CALCIUM LEVEL 8.6 MG/DL (8.5-10.1); CARBON DIOXIDE LEVEL 27 MEQ/L (21-32); CHLORIDE LEVEL 108 MEQ/L (98-107); CREATININE FOR GFR 0.54 MG/DL (0.55-1.30); GLOMERULAR FILTRATION RATE > 60.0 (>60); GLUCOSE, FASTING 84 MG/DL (70-100); MAGNESIUM LEVEL 2.2 MG/DL (1.8-2.4); PHOSPHORUS LEVEL 3.6 MG/DL (2.5-4.9); POTASSIUM SERUM 3.6 MEQ/L (3.5-5.1); SODIUM LEVEL 140 MEQ/L (136-145); TOTAL PROTEIN 6.8 GM/DL (6.4-8.2)
[2021-06-04 09:25] LABS: PTH INTACT 82.1 PG/ML (18.5-88.0)
[2021-06-04 10:00] VITALS: BP 134/62
[2021-06-04] MEDS: PROMETHAZINE 25 MG TAB PO PRN (13:00)
[2021-06-04 14:00] VITALS: BP 126/84
[2021-06-04 18:00] VITALS: BP 124/72
[2021-06-04] MEDS ORDERED: POTASSIUM CHLORIDE 10MEQ SR TABLET PO ONE (19:00)
[2021-06-05] MEDS: HEPARIN SOD (PORCINE) 5000UNITS/ML 1ML VIAL/SYRINGE SQ SCH ×2 (05:47→13:01)
[2021-06-05 06:00] VITALS: BP 120/80
[2021-06-05] MEDS: NICOTINE 14 MG/24 HR TRANSDERMAL TD SCH ×2 (09:00→09:07)
[2021-06-05] MEDS: OYSTER SHELL CALCIUM 500 MG TAB PO SCH (09:06)
[2021-06-05] MEDS: FOLIC ACID 1 MG TAB PO SCH (09:06)
[2021-06-05] MEDS: THIAMINE 100 MG TAB PO SCH (09:06)
[2021-06-05] MEDS: CYANOCOBALAMIN 1,000MCG/ML VIAL (J3420) IM SCH (09:06)
[2021-06-05] MEDS ORDERED: hydrOXYzine 25 MG TAB PO PRN (10:10)
[2021-06-05] MEDS ORDERED: hydrOXYzine 10 MG TAB PO PRN (10:25)
[2021-06-05] MEDS ORDERED: PILL CUTTER 1 EACH XX PRN (10:35)
[2021-06-05] MEDS ORDERED: HYDR-643 PO (10:40)
[2021-06-05] MEDS ORDERED: FOLI1TAB11 PO (10:40)
[2021-06-05] MEDS ORDERED: B-12100021 PO (10:41)
[2021-06-05] MEDS ORDERED: THIA100TA PO (10:41)
[2021-06-05] MEDS ORDERED: NICO14PA TD (10:41)
[2021-06-05] MEDS ORDERED: CALCI50TA PO (10:41)
[2021-06-05 15:01] LABS: HCG, SERUM QUANTITATIVE < 1.0 MIU/ML
== END 2021-06-05 17:31 | DRG 812 ==
LOC: M ED 05:44 → M ED INP 12:25 → M MSPAV 23:33
PROVIDERS: ADMIT Internal Medicine; ATTEND Internal Medicine
DX: T42.72XA Poisoning by unspecified antiepileptic and sedative-hypnotic drugs, intentional self-harm, initial encounter (principal); E87.2 Acidosis; F31.9 Bipolar disorder, unspecified; Z20.822 Contact with and (suspected) exposure to COVID-19; Z79.899 Other long term (current) drug therapy; F41.8 Other specified anxiety disorders; E83.52 Hypercalcemia; F14.10 Cocaine abuse, uncomplicated; F10.10 Alcohol abuse, uncomplicated

== ENCOUNTER 2021-06-05 15:43 | Inpatient (IN) | payer SELFPAY ==
[~2021-06-05] VITALS: Ht 152.4 cm; Wt 67.8 kg
[~2021-06-05 15:43] MED LIST changes: +B-12100021 PO; +CALCI50TA PO; +FOLI1TAB11 PO; +HYDR-643 PO; +NICO14PA TD; +THIA100TA PO; +VIEN1TAB PO
[2021-06-05] MEDS ORDERED: MAALOX 30 ML SUSP *UDC PO PRN (15:45)
[2021-06-05] MEDS ORDERED: OLANZapine ORAL DISINTEGRATING TAB 5MG PO PRN (15:45)
[2021-06-05] MEDS ORDERED: ACETAMINOPHEN TAB 650MG DOSE (2X325MG) PO PRN (15:45)
[2021-06-05] MEDS ORDERED: MOM 30ML SUSPENSION UDC PO PRN (15:45)
[2021-06-05 17:42] VITALS: BP 150/90
[2021-06-05] MEDS ORDERED: HOME MED LIST COMPLETE! XX SCH (19:25)
[2021-06-05] MEDS: traZODone 50 MG TAB PO PRN (21:42)
[2021-06-05] MEDS: hydrOXYzine 50 MG TAB PO PRN (21:42)
[2021-06-06 06:56] VITALS: BP 131/85
--- NOTE | 2021-06-06 09:35 | MHHPEPDOC ---
General Date Of Admission: Jun 06, 2021 Legal Status: 9.39 Chief Complaint "made a mistake" History of Present Illness HISTORY OF THE PRESENT ILLNESS: Per this advertising copywriter's consultation report: Patient is a 30-year-old woman who came into the hospital June 01 that was initially seen by psychiatry June 02 due to taking 20 of her Lamictal pills an intentional overdose, reports she did this while on alcohol with 9-year-old daughter in the home (CPS is involved), patient states that she can go to drug court and return outpatient as she is spoken with social work. Patient was medically stabilized pending disposition and psychiatry was re-consulted. On interview patient says she is worried because she is losing money by being in the hospital is causing her a great deal of stress, reports that she usually feels overwhelmed by emotions but also has up-and-down moods lasting weeks on end consistent with a a "milder form of bipolar". Her meds have been discontinued. When discussed lethality of her attempt she became very irritable and started crying and yelling stating she wanted to leave. Was redirected by nursing unable to calm down. We discussed sleep starting Abilify for mood stabilization, was made aware of common and rare side effects. Patient reports chronic irritable mood swings, hypomanic and depressive episodes with low mood. Denies psychotic episodes, PTSD, has mood lability, reactive mood. Interval: She reports many symptoms of borderline personality disorder that persisted and causing conflict between her and her mother, also reports this is caused trouble in relationships before, reports some mind reading and feeling hopeless and helpless, having fears of abandonment when in conflicts verbally. Denies consistent self-harm, reports drinks 1 time per week approximately 6 drinks of beer or liquor. Education provided regarding risk of drinking alcohol with medications, worsening impulsivity leading to admission, serious health effects with chronic use, risk of worsening mood and/or rebound anxiety. Psychiatric Review of Systems Depression (2 or more weeks): depressed mood, feelings of worthlesness Eleni (4 or more days of): irritable/elevated mood, expansive mood, talkativity, pressured, engages in risky behavior Psychosis: denies Past Psychiatric History PAST PSYCHIATRIC HISTORY: Last [facility] admission, February 2020 for depression, in context of polysubstance abuse with acute social stressors and suicidal ideation. Reports sees Dr. Grimes and is pending finding a new therapist, was taking Lamictal 100 daily prior to overdose. Past Medical History Medical Problems cocaine, hemorrhoid, miscarriage, need for rhogam february 05 Head Injury: No Seizures: No Hospitalizations: Yes Surgeries: No Family Medical/Psychiatric HX Medical Problems unremarkable Psychiatric Disorders: No Addiction: No Suicide Attemps/Completions: No Addiction History alcohol (audit of 4, overdose in context of alcohol use), cocaine ( history of cocaine use) Social History The patient was born and raised in [place]. 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 Pending CPS case, possible drug court Recent miscarriage, given rhogam, Rh incompatibility Mental Status Examination General Appearance: well groomed, appears stated age, other (Bilateral black eyes) Build: overweight Demeanor: average Eye Contact: average Activity: average Behavior: cooperative Speech: clear, normal volume Mood: depressed Mood " Okay I guess" Affect: constricted Thought Process: logical/linear Thought Content (Delusions): none reported Thought Content (Other): none reported Thought Content (Aggressive): none reported Perception (Hallucinations): none reported Perception (Other): none reported Cognition (Impairment of): none reported Cognition(Intelligence Est.): average Oriented: Awake, Alert, Oriented times three Insight: improving Judgment: Improving Psychosis: Denies Diagnoses DIAGNOSIS: 1. Cyclothymic disorder per history, suicide attempt 2. History of cocaine use 3. Alcohol use disorder, moderate 4. Borderline personality disorder Rule out bipolar disorder per history A-FIB/CHADSVASC A-FIB History Current/History of A-Fib/PAF?: No Current PO Anticoag Therapy: No Age/Risk Factor Scoring CHADSVASC: CHADSVASC Response (Comments) Value Age Risk Factor Age < 65 years old 0 Gender Risk Factor Female 1 Hx of CHF No 0 Hx of HTN No 0 Hx of Stroke/TIA/or VTE No 0 Hx of Diabetes No 0 Hx of Vascular Disease No 0 Total 1 Treatment Treatment ordered: NONE Reason Anticoagulant not given: Not indicated/[id number] Assessment Patient meets criteria for involuntary admission, understands it was an intentional overdose attempt and continues to pose a threat to self-harm, as non modifiable factors of pending CPS case, also is transitioning therapist, reports impulsive suicide attempt in context of increasing substance use including cocaine and alcohol. Previously test was negative on 06/04/21. Patient endorses feelings of emptiness, labile mood, reactive mood, interpersonal conflicts at times, fears of abandonment, pulse of and injures behavior. Meets criteria for borderline personality disorder, reports " my emotions overrun me sometimes", denies self-harm. On reviewing suicide attempt says she cannot remember things due to the overdose on the significant amount of medication and reports that she had a hallucination after taking the Lamictal where she was hitting a bathtub. Currently denies any psychosis or manic symptoms, reports chronic periods with years of high and low moods and that he antidepressant Center drug depression. Has history of cyclothymic disorder. Initial Treatment Plan 1. Patient was admitted on a [9.39] status. 2. Complete history was obtained. 3. With patients permission, family will be contacted and database will be expanded. 4. Patients medication regimen will be reviewed and changed accordingly. 5. Patient will be provided with protected environment. 6. Patient will be treated with individual, group, and milieu therapies. 7. Patient will receive supportive psych-education. 8. Discharge planning will commence immediately. 9. Outpatient follow-up treatment will be strongly recommended. 10. The initial treatment plan will focus initially on: * Depression. * Risk for suicide. ESTIMATED LENGTH OF STAY: 3-7DAYS. TIME SPENT COUNSELING AND COORDINATING INITIAL CARE: 30minutes. Tobacco Cessation Screen If Patient is a Smoker none Tobacco Cessation Tx Ordered?: Yes Ordered/Pending Vital Signs Vital Signs Date Time Temp Pulse Resp B/P (MAP) Pulse Ox O2 Delivery O2 Flow Rate FiO2 06/06/21 06:56 97.6 85 16 131/85 (100) 100 Room Air Medications Scheduled Cyanocobalamin (Vitamin B-12) (B-12) 1,000 Mcg Tablet, 1 TAB PO DAILY Folic Acid (Folic Acid) 1 Mg Tablet, 1 MG PO DAILY Levonorgestrel-Ethin Estradiol (Vienva-28 Tablet) 1 Each Tablet, 1 TAB PO DAILY, (Reported) Nicotine (Nicotine Patch) 14 Mg Patch.td24, 1 PATCH TD DAILY Oyster Shell Calcium (Oyster Shell Calcium) 500 Mg Tablet, 500 MG PO DAILY Thiamine Hcl (Vitamin B-1) 100 Mg Tablet, 100 MG PO DAILY Allergies Coded Allergies: No Known Allergies (Unverified , 02/17/20) LINO GALEANO MD Jun 06, 2021 09:35
[2021-06-06 16:26] VITALS: BP 119/81
[2021-06-06] MEDS: traZODone 50 MG TAB PO PRN (20:53)
[2021-06-07 07:07] VITALS: BP 136/95
[2021-06-07 07:23] LABS: CHOLESTEROL RISK RATIO 2.146 (<5)
--- NOTE | 2021-06-07 10:18 | MHIPNPDOC ---
[facility] Progress Note Progress Note DATE OF SERVICE: 06/07/21 HISTORY: Per this fiction and nonfiction writer prose's consultation report: Patient is a 30-year-old woman who came into the hospital June 01 that was initially seen by psychiatry Liseth sanon 15 due to taking 20 of her Lamictal pills an intentional overdose, reports she did this while on alcohol with 9-year-old daughter in the home (CPS is involved), patient states that she can go to drug court and return outpatient as she is spoken with social work. Patient was medically stabilized pending disposition and psychiatry was re-consulted. On interview patient says she is worried because she is losing money by being in the hospital is causing her a great deal of stress, reports that she usually feels overwhelmed by emotions but also has up-and-down moods lasting weeks on end consistent with a a "milder form of bipolar". Her meds have been discontinued. When discussed lethality of her attempt she became very irritable and started crying and yelling stating she wanted to leave. Was redirected by nursing unable to calm down. We discussed sleep starting Abilify for mood stabilization, was made aware of common and rare side effects. Patient reports chronic irritable mood swings, hypomanic and depressive episodes with low mood. Denies psychotic episodes, PTSD, has mood lability, reactive mood. Interval: Lying comfortably in bed, improved affect with some smiling and laughing at times, no longer high level of irritability displayed and agitation which was present on medical floor. States she is responding to medications without side effects, persistent since increasing Abilify to 10 mg nightly. Reports mood being more even and calm. Went to expressive therapy group, has been encouraged to work on labeling emotions, work on mindfulness and understanding when she is in emotion mind state, for step is to recognize this and try to tap into realistic mind to obtain locke mind. No acute physical complaints, reports sleep is okay given the noise on the unit that she still has the ability to get to sleep. Energy is okay. VITAL SIGNS: See below. NEW TEST RESULTS: Lipid panel within normal limits CURRENT MEDICATIONS: See below. MENTAL STATUS EXAMINATION: General Appearance: well groomed, appears stated age, other (Bilateral black eyes), wearing glasses, improved eye contact. Build: overweight Demeanor: average Eye Contact: average Activity: average Behavior: cooperative Speech: clear, normal volume Mood: Less depressed Mood: " Better" Affect: Mildly constricted, nonlabile, does laugh at times and smile, mood congruent Thought Process: logical/linear Thought Content (Delusions): none reported Thought Content (Other): none reported Thought Content (Aggressive): none reported Perception (Hallucinations): none reported Perception (Other): none reported Cognition (Impairment of): none reported Cognition(Intelligence Est.): average Oriented: Awake, Alert, Oriented times three Insight: improving Judgment: Improving Psychosis: Denies DIAGNOSES: 1. Cyclothymic disorder per history, suicide attempt 2. History of cocaine use 3. Alcohol use disorder, moderate 4. Borderline personality disorder Rule out bipolar disorder per history ASSESSMENT: Patient reports improved mood control with evaluating her emotions in group and in our individual sessions, also reports tolerates medication well without side effects and that it may have some effect on mood lability and anxiety. Reports normal sleep, denies insomnia, normal appetite. States she wants to stay away from alcohol, refuses naltrexone due to the fact that she does not have alcohol cravings reportedly. Encouraged to talk about this as a trigger for her impulsive behavior when she works with therapist outside the hospital. MANAGEMENT PLAN: Continue medications including Abilify 10 mg nightly, no acute physical complaints or rashes, denies any akathisia, aims scoring 0 on evaluation today. Due to the severity of presentation, requires an additional day of hospital stay to establish a safety plan and will likely leave tomorrow if continues to improve and continues to deny any suicidal ideation, intent or plan as she has been today. Patient wants to return home to mom. TIME SPENT: 15 minutes. Vital Signs Vital Signs Date Time Temp Pulse Resp B/P (MAP) Pulse Ox O2 Delivery O2 Flow Rate FiO2 06/07/21 07:07 98.0 85 20 136/95 (109) 100 Room Air Laboratory Data 24H Labs Laboratory Tests 2 06/07/21 06:34: Triglycerides Level 98, Total Cholesterol 176, LDL Cholesterol 74, Non-HDL Cholesterol (LDL + VLDL) 94, Total HDL Cholesterol 82, Cholesterol/HDL Ratio 2.146 Current Medications Current Medications Medications (Trade) Dose Ordered Sig/Vika Route PRN Reason Start Time Stop Time Status Last Admin Dose Admin Acetaminophen (Tylenol Tab) 650 mg Q6HP PRN PO HEADACHE or MILD DISCOMFORT 06/05/21 15:45 Al Hydrox/Mg Hydrox/Simethicone (Mylanta) 30 ml Q4HP PRN PO HEARTBURN/INDIGESTION 06/05/21 15:45 Aripiprazole (AbiLIFY) 5 mg QHS PO 06/05/21 21:00 06/06/21 12:21 DC 06/05/21 21:41 Aripiprazole (AbiLIFY) 10 mg QHS PO 06/06/21 21:00 06/06/21 20:54 Home Med (Home Med List Complete!) ASDIRECTED XX 06/05/21 19:25 06/05/21 19:27 DC Hydroxyzine HCl (Atarax) 50 mg Q6HP PRN PO ANXIETY 06/05/21 15:45 06/05/21 21:42 Magnesium Hydroxide (Milk Of Magnesia) 30 ml DAILYPRN PRN PO CONSTIPATION 06/05/21 15:45 Olanzapine (ZyPREXA ZYDIS) 5 mg Q4HP PRN PO AGITATION 06/05/21 15:45 Trazodone HCl (Desyrel) 50 mg QHSP PRN PO INSOMNIA 06/05/21 15:45 06/06/21 20:53 Allergies Coded Allergies: No Known Allergies (Unverified , 02/17/20) LINO GALEANO MD Jun 07, 2021 10:18
[2021-06-07 18:00] VITALS: BP 130/96
[2021-06-07] MEDS: traZODone 50 MG TAB PO PRN (21:03)
[2021-06-07] MEDS: hydrOXYzine 50 MG TAB PO PRN (21:04)
[2021-06-08 06:00] VITALS: BP 127/69
[2021-06-08] MEDS ORDERED: ABIL1TAB11 PO (08:13)
[2021-06-08] MEDS ORDERED: TRAZ-252 PO (08:13)
[2021-06-08] MEDS ORDERED: NICO14PA TD (08:13)
--- NOTE | 2021-06-08 15:15 | MHDSPDOC ---
[facility] Discharge Summary Discharge Summary DATE OF ADMISSION: Jun 05, 2021 at 17:39 DATE OF DISCHARGE: Jun 08, 2021 at 10:30 Discharge diagnoses: 1. Cyclothymic disorder per history 2. History of cocaine use 3. Alcohol use disorder, moderate 4. Borderline personality disorder Rule out bipolar disorder per history Reason for admission:Per this scientific writer's consultation report: Patient is a 30-year-old woman who came into the hospital June 01 that was initially s een by psychiatry June 02 due to taking 20 of her Lamictal pills an intentional overdose, reports she did this while on alcohol with 9-year-old daughter in the home (CPS is involved), patient states that she can go to drug court and return outpatient as she is spoken with social work. Patient was medically stabilized pending disposition and psychiatry was re-consulted. On in terview patient says she is worried because she is losing money by being in the hospital is causing her a great deal of stress, reports that she usually feels overwhelmed by emotions but also has up-and-down moods lasting weeks on end consistent with a a "milder form of bipolar". Her meds have been discontinued. When discussed lethality of her attempt she became very irritable and started crying and yelling stating she wanted to leave. Was redirected by nursing unable to calm down. We discussed sleep starting Abilify for mood stabilization, was made aware of common and rare side effects. Patient reports chronic irritable mood swings, hypomanic and depressive episodes with low mood. Denies psychotic episodes, PTSD, has mood lability, reactive mood. Vital signs: See below Consultants involved: See medical H&P by hospitalist Treatment and progress on the unit: Patient was admitted to the [facility] 9.39 legal status and was afforded the following treatment modalities: 1. Individual therapy 2. Group therapy 3. Medication management 4. Milieu therapy 5. Safe environment Hospital course: Patient was admitted to the [facility] [place] on a 9.39 legal status. Was medically cleared prior to coming up to the [facility]. Was seen on consult on the medical floor after being medically stabilized prior to coming to the [facility] there was started on low-dose Abilify which was titrated up to 10 mg nightly for mood lability, impulsivity, mood stabilization. Patient has a good response to medication without side effects, prior to starting medication have discussed all side effects for the medication including EPS, NMS, akathisia, TD, cardiac arrhythmias and other common and rare side effects. Patient found medications beneficial and tolerated them well. With further discussion along with social work and patient separately is aware of current situation with 9-year-old daughter whom will stay with her previous partner, and that she will need to go to court on Monday, drug court. Despite these stressors, patient reports that she is motivated to be there for her daughter and work towards recovery, denied any suicidal ideation, intent or plan while on the unit. Reports moods, anxiety symptoms, improve on the unit. Discussed some DBT skills that she could use to help with coping including distress tolerance skills, mindfulness skills, interpersonal effectiveness skills. Patient attended groups daily during stay, and encouraged to practice using these DBT skills. Patient symptoms improved with treatment. On day of discharge patient denied depression, anxiety, insomnia, suicidal or homicidal ideations intent or plan, hallucinations, delusions. Patient was discharged home with follow-up. Patient felt safe for discharge. Was offered continued stay involuntary admission but refused. Patient was discharged home to mother, who agreed to pick her up. Discharge assessment: On today's interview patient is alert and oriented, dressed appropriately. Hygiene and grooming is well-kept. Smiles on approach and is pleasant and engaged on interview. Denies depression and anxiety. Denies suicidal homicidal ideation, intent or planning. Denies and is not observed with joshua or psychotic symptoms of delusions, hallucinations, bizarre thinking, obsessions, paranoia, ruminations, illogical thoughts, flight of ideas or having poor insight or judgment. Patient has normal mentation, declines further hospitalization of voluntary status and meets criteria for discharge today, patient encouraged to return the hospital if symptoms worsen or change and encouraged to call unit if they feel they need provider's questions to be answered or help with medications or care. Mental status: General Appearance: well groomed, appears stated age, other (Bilateral black eyes), wearing glasses, improved eye contact. Build: overweight Demeanor: average Eye Contact: average Activity: average Behavior: cooperative Speech: clear, normal volume Mood: Euthymic Mood: "Good" Affect: Euthymic, stable, laughs at times and smiles, mood congruent Thought Process: logical/linear Thought Content (Delusions): none reported Thought Content (Other): none reported Thought Content (Aggressive): none reported Perception (Hallucinations): none reported Perception (Other): none reported Cognition (Impairment of): none reported Cognition(Intelligence Est.): average Oriented: Awake, Alert, Oriented times three Insight: good Judgment: fair, Improving Psychosis: Denies Medications on discharge: see medication reconciliation: CSSRS on discharge: Wish to be : No nonspecific active suicidal thoughts: No lifetime attempts: 1x while intoxicated interrupted attempts: 0 aborted attempts: 0 preparatory acts or behavior: None Taking into consideration safety state, status, modifiable, non-modifiable risk factors patient is at low risk on discharge for suicide according to [facility] suicide evaluation. Follow-up appointments: Follow Up Care Education Label * Mental Health Appt 1 * Mental Health [facility] * Peer Support/Advocacy [place] [place] [facility] * Established With This Provider Yes * Therapist Dr. Rodas * Date Jun 11, 2021 * Time 12:00 * Address of Clinic or Practice [address] [place] [address] * * Additional information appointment is [facility]. patient will be given a new counselor at appointment. Follow Up Care Education Label * Medical * Medical Follow Up [facility] * Established With This Provider Yes * Therapist * Date Jun 18, 2021 * Time 14:15 * Address of Clinic or Practice [address] [place] [address] * total time: 25 minutes ETOH/Disorder Med Rx ETOH/DRUG DISORDER RX: Offrd @ d/c & pt refused Vital Signs/I&Os Vital Signs Date Time Temp Pulse Resp B/P (MAP) Pulse Ox O2 Delivery O2 Flow Rate FiO2 06/08/21 06:00 98.6 69 20 127/69 (88) 99 06/07/21 07:07 Room Air Medications Scheduled Aripiprazole (Abilify) 5 Mg Tablet, 10 MG PO QHS for mood stabilizer, #7 Cyanocobalamin (Vitamin B-12) (B-12) 1,000 Mcg Tablet, 1 TAB PO DAILY for 30 Days, #30 Folic Acid (Folic Acid) 1 Mg Tablet, 1 MG PO DAILY for 30 Days, #30 Levonorgestrel-Ethin Estradiol (Vienva-28 Tablet) 1 Each Tablet, 1 TAB PO DAILY, (Reported) Nicotine (Nicotine Patch) 14 Mg Patch.td24, 1 PATCH TD DAILY for tobacco cravings, #7 Oyster Shell Calcium (Oyster Shell Calcium) 500 Mg Tablet, 500 MG PO DAILY, #15 Thiamine Hcl (Vitamin B-1) 100 Mg Tablet, 100 MG PO DAILY, #30 Scheduled PRN Trazodone HCl (Trazodone HCl) 50 Mg Tablet, 50 MG PO QHSP PRN for INSOMNIA, #7 Allergies Coded Allergies: No Known Allergies (Unverified , 02/17/20) LINO GALEANO MD Jun 08, 2021 15:15
== END 2021-06-08 10:30 | disposition home or self-care (01) | DRG 753 ==
LOC: M PSY 17:39
PROVIDERS: ADMIT Student in an Organized Health Care Education/Training Program; ATTEND Student in an Organized Health Care Education/Training Program
DX: F34.0 Cyclothymic disorder (principal); F10.20 Alcohol dependence, uncomplicated; F60.3 Borderline personality disorder; Z91.5 Personal history of self-harm; Z63.8 Other specified problems related to primary support group; Z79.899 Other long term (current) drug therapy

== ENCOUNTER → 2021-07-21 | Outpatient (CLI) | payer BC ==
[~2021-07-21] MED LIST changes: +ABIL1TAB11 PO; +TRAZ-252 PO
== END ==
LOC: M OUTALCOH 07:54
PROVIDERS: ATTEND Psychiatry & Neurology Psychiatry
DX: Z71.51 Drug abuse counseling and surveillance of drug abuser (principal)

== ENCOUNTER 2021-08-03 15:00 | Outpatient (RCR) | payer BC | END 2021-08-17 | LOC: M OUTALCOH 15:00 | PROVIDERS: ATTEND Psychiatry & Neurology Psychiatry | DX: F10.20 Alcohol dependence, uncomplicated (principal) ==

== ENCOUNTER 2021-09-09 09:52 | Outpatient (RCR) | payer BC | END 2021-09-17 | LOC: M OUTALCOH 09:52 | PROVIDERS: ATTEND Psychiatry & Neurology Psychiatry | DX: F10.20 Alcohol dependence, uncomplicated (principal) ==

== ENCOUNTER → 2021-09-16 | Outpatient (REF) | payer BC | LOC: M LAB REF 16:04 | PROVIDERS: ATTEND Physician Assistant | DX: R50.9 Fever, unspecified (principal); R53.83 Other fatigue ==

== ENCOUNTER 2021-10-14 10:00 | Outpatient (RCR) | payer BC | END 2021-10-18 | LOC: M OUTALCOH 10:00 | PROVIDERS: ATTEND Psychiatry & Neurology Psychiatry | DX: F10.20 Alcohol dependence, uncomplicated (principal) ==

== ENCOUNTER → 2021-11-15 | Outpatient (RCR) | payer BC | LOC: M OUTALCOH 10-19 09:50 | PROVIDERS: ATTEND Psychiatry & Neurology Psychiatry | DX: F10.20 Alcohol dependence, uncomplicated (principal) ==

== ENCOUNTER → 2021-12-14 | Outpatient (CLI) | payer BC | LOC: M PLALAB 10:56 | PROVIDERS: ATTEND Psychiatry & Neurology Psychiatry | DX: F10.20 Alcohol dependence, uncomplicated (principal) ==

== ENCOUNTER → 2021-12-16 | Outpatient (RCR) | payer BC | LOC: M OUTALCOH 11-18 09:00 | PROVIDERS: ATTEND Psychiatry & Neurology Psychiatry | DX: F10.20 Alcohol dependence, uncomplicated (principal) ==

== ENCOUNTER 2022-01-11 10:49 | Outpatient (RCR) | payer BC | END 2022-01-15 | LOC: M OUTALCOH 10:49 | PROVIDERS: ATTEND Psychiatry & Neurology Psychiatry | DX: F10.20 Alcohol dependence, uncomplicated (principal) ==

== ENCOUNTER 2022-02-11 09:22 | Outpatient (RCR) | payer BC | END 2022-02-15 | LOC: M OUTALCOH 09:22 | PROVIDERS: ATTEND Psychiatry & Neurology Psychiatry | DX: F10.20 Alcohol dependence, uncomplicated (principal) ==

== ENCOUNTER 2022-03-09 08:00 | Outpatient (RCR) | payer BC | END 2022-03-17 | LOC: M OUTALCOH 08:00 | PROVIDERS: ATTEND Psychiatry & Neurology Psychiatry | DX: F10.20 Alcohol dependence, uncomplicated (principal) ==

== ENCOUNTER 2022-05-17 10:00 | Outpatient (RCR) | payer BC | END 2022-05-18 | LOC: M OUTALCOH 10:00 | PROVIDERS: ATTEND Psychiatry & Neurology Psychiatry | DX: F10.20 Alcohol dependence, uncomplicated (principal) ==

== ENCOUNTER → 2023-05-24 | Outpatient (REF) | payer BC ==
[2023-05-24 17:53] LABS: APPEARANCE, URINE CLOUDY (CLEAR); BACTERIA, URINE AUTO 3+ (NEGATIVE); BILIRUBIN, URINE AUTO NEGATIVE (NEGATIVE); BLOOD, URINE BLOOD 1+ (NEGATIVE); CALCIUM OXALATE CRYSTALS LARGE; COLOR, URINE AMBER (YELLOW); GLUCOSE, URINE (UA) AUTO NEGATIVE (NEGATIVE); KETONE, URINE AUTO NEGATIVE (NEGATIVE); LEUKOCYTE ESTERASE, URINE AUTO 2+ (NEGATIVE); MUCUS, URINE LARGE (NEGATIVE); NITRITE, URINE AUTO POSITIVE (NEGATIVE); PROTEIN, URINE AUTO 2+ mg/dL (NEGATIVE); RBC, URINE AUTO 8 /HPF (0-3); SPECIFIC GRAVITY URINE AUTO 1.029 (1.002-1.035); SQUAMOUS EPITHELIAL CELL UR AU 3 /HPF (0-6); WBC, URINE AUTO TNTC /HPF (0-3)
== END ==
LOC: M LAB REF 16:25
PROVIDERS: ATTEND Physician Assistant
DX: N39.0 Urinary tract infection, site not specified (principal)

== ENCOUNTER → 2024-05-03 | Outpatient (CLI) | payer OTHER ==
[2024-05-03 10:48] LABS: HEMATOCRIT 41.7 % (36.0-47.0); HEMOGLOBIN 14.2 g/dl (12.0-15.5); MEAN CORPUSCULAR HEMOGLOBIN 33.9 pg (27.0-33.0); MEAN CORPUSCULAR HGB CONC 34.1 g/dl (32.0-36.5); MEAN CORPUSCULAR VOLUME 99.5 fl (80.0-96.0); PLATELET COUNT, AUTOMATED 265 10^3/uL (150-450); RED BLOOD COUNT 4.19 10^6/uL (4.00-5.40); WHITE BLOOD COUNT 8.6 10^3/uL (4.0-10.0)
[2024-05-03 11:05] LABS: HEMOGLOBIN A1c 4.4 % (4.0-6.0)
[2024-05-03 11:25] LABS: ALBUMIN 3.7 G/DL (3.2-5.2); ALKALINE PHOSPHATASE 56 U/L (46-116); ALT/SGPT 19 U/L (7.0-40); AST/SGOT 16 U/L (<34); BILIRUBIN,TOTAL 0.6 MG/DL (0.3-1.2); BLOOD UREA NITROGEN 10 MG/DL (9-23); CALCIUM LEVEL 8.9 MG/DL (8.5-10.1); CARBON DIOXIDE LEVEL 28 MMOL/L (20-31); CHLORIDE LEVEL 106 MMOL/L (98-107); CHOLESTEROL LEVEL 142 MG/DL (<200); CHOLESTEROL RISK RATIO 2.16 (<5); CREATININE FOR GFR 0.63 MG/DL (0.55-1.30); GLOMERULAR FILTRATION RATE > 60.0 (>60); GLUCOSE, FASTING 85 MG/DL (60-100); HDL CHOLESTEROL 65.5 MG/DL (>40); LDL CHOLESTEROL 62.9 MG/DL (<100); NON-HDL-C 76.5 MG/DL; POTASSIUM SERUM 3.7 MMOL/L (3.5-5.1); SODIUM LEVEL 139 MMOL/L (136-145); TOTAL PROTEIN 6.9 G/DL (5.7-8.2); TRIGLYCERIDES LEVEL 68 MG/DL (<150)
[2024-05-03 11:27] LABS: THYROID STIMULATING HORMONE 2.035 uIU/ML (0.55-4.78); TOTAL 25(OH) VITAMIN D 34.1 NG/ML (20.0-100.0)
== END ==
LOC: M RAD 09:40
PROVIDERS: ATTEND Family Medicine
DX: D64.9 Anemia, unspecified (principal); E03.9 Hypothyroidism, unspecified; R53.83 Other fatigue